=== PATIENT | female | born 1940 | race Caucasian/White ===

== ENCOUNTER 2019-08-02 10:47 | Emergency (ER) | payer MEDICARE ==
[~2019-08-02] VITALS: Ht 160 cm; Wt 61.4 kg
[2019-08-02] MEDS ORDERED: heparin 10,000 units/1 ML INJ IV ONE ×3 (11:15→11:45)
[2019-08-02] MEDS ORDERED: heparin 10,000 units/1 ML INJ IV PRN ×2 (11:15→11:45)
[2019-08-02] MEDS ORDERED: heparin 25,000 UNIT/250ml bag 250 ML IV SCH ×2 (11:15→11:43)
[2019-08-02 11:42] LABS: BASOPHILS # (AUTO) 0.1 X10'3 (0-0.2); BASOPHILS % (AUTO) 0.9 % (0-1); EOSINOPHILS # (AUTO) 0.2 X10'3 (0-0.9); EOSINOPHILS % (AUTO) 2.3 % (0-6); HEMATOCRIT 42.3 % (35.0-45.0); HEMOGLOBIN 14.3 g/dl (12.0-16.0); LYMPHOCYTES # (AUTO) 2.1 X10'3 (1.1-4.8); LYMPHOCYTES % (AUTO) 28.3 % (21-51); MEAN CORPUSCULAR HEMOGLOBIN 32.3 PG (27.0-31.0); MEAN CORPUSCULAR HGB CONC 33.7 g/dL (33.0-36.5); MEAN CORPUSCULAR VOLUME 95.8 FL (78-98); MEAN PLATELET VOLUME 7.6 FL (7.4-10.4); MONOCYTES # (AUTO) 0.8 X10'3 (0-0.9); MONOCYTES % (AUTO) 10.9 % (2-12); NEUTROPHILS # (AUTO) 4.3 X10'3 (1.8-7.7); NEUTROPHILS % (AUTO) 57.6 % (42-75); PLATELET COUNT 272 X10'3 (140-440); RED BLOOD COUNT 4.42 X10'6 (4.20-5.60); RED CELL DISTRIBUTION WIDTH 13.9 % (11.5-14.5); WHITE BLOOD COUNT 7.5 X10'3 (4.5-11.0)
[2019-08-02] MEDS ORDERED: normal saline 1000ml 1,000 ML IV SCH (11:43)
[2019-08-02] MEDS ORDERED: METO25TA6 PO (11:44)
[2019-08-02] MEDS ORDERED: DILT-35 PO (11:44)
[2019-08-02] MEDS ORDERED: acetaminophen 325mg tablet PO PRN ×2 (11:45)
[2019-08-02] MEDS ORDERED: magnesium 4gm in 100ml NS 100 ML IV PRN (11:45)
[2019-08-02] MEDS ORDERED: magnesium Cl slow-release 64mg tablet PO PRN (11:45)
[2019-08-02] MEDS ORDERED: morphine 2 MG/ML inj. syringe IV PRN ×2 (11:45)
[2019-08-02] MEDS ORDERED: mag hydrox/Alum hydrox/simeth 30ml oral suspension PO PRN (11:45)
[2019-08-02] MEDS ORDERED: regadenoson 0.4mg/5ml syringe IV ONE (11:45)
[2019-08-02] MEDS ORDERED: ondansetron/PF 4mg/2ml inj IV PRN (11:45)
[2019-08-02] MEDS ORDERED: potassium CL 10mEq/100ml bag 100 ML IV PRN ×2 (11:45)
[2019-08-02] MEDS ORDERED: magnesium hydroxide 30ml (MOM) UD suspension PO PRN (11:45)
[2019-08-02] MEDS ORDERED: nitroGLYCERIN 0.4mg SUBLingual tab SL PRN ×2 (11:45)
[2019-08-02] MEDS ORDERED: metoprolol tartrate 1mg/ml inj IV PRN (11:45)
[2019-08-02] MEDS ORDERED: magnesium 2GM in 50ml NS 50 ML IV PRN (11:45)
[2019-08-02] MEDS ORDERED: aminophylline 250mg/10ml inj. IV PRN (11:45)
[2019-08-02] MEDS ORDERED: aspirin 325mg tablet PO ONE (11:45)
[2019-08-02] MEDS ORDERED: HYDROcodone/acetaminophen 5mg/325mg tablet PO PRN (11:45)
[2019-08-02] MEDS ORDERED: potassium Cl 20 mEq SR tablet PO PRN ×2 (11:45)
[2019-08-02 11:58] LABS: ALANINE AMINOTRANSFERASE 120 U/L (12-78); ALBUMIN 3.8 G/DL (3.4-5.0); ALBUMIN/GLOBULIN RATIO 1.1 (1.1-1.5); ALKALINE PHOSPHATASE 77 IU/L (46-116); ANION GAP 9 (8-16); ASPARTATE AMINO TRANSFERASE 69 U/L (10-37); BILIRUBIN,TOTAL 0.4 MG/DL (0.1-1.0); BLOOD UREA NITROGEN 14 MG/DL (7-18); BUN/CREATININE RATIO 17.5 (6.6-38.0); CALCIUM 8.9 MG/DL (8.5-10.1); CHLORIDE 107 MMOL/L (99-107); GLUCOSE 97 MG/DL (70-104); SODIUM 144 MMOL/L (135-145); TOTAL CARBON DIOXIDE 28.4 MMOL/L (24-32); TOTAL PROTEIN 7.2 G/DL (6.4-8.2); eGFR 69 ML/MIN
[2019-08-02 12:03] LABS: MAGNESIUM 2.3 MG/DL (1.5-2.4)
[2019-08-02 12:19] LABS: PARTIAL THROMBOPLASTIN TIME 48 SECONDS (22-32)
[2019-08-02 12:30] LABS: HEMOGLOBIN A1C 5.5 % (4.5-6.2)
--- NOTE | 2019-08-02 12:30 | NUR ---
PATIENT STATES THAT SHE REFUSES TO BE ADMITTED INPATIENT AND WOULD LIKE TO LEAVE TO GO TO HER [place] [facility]. PATIENT INFORMED THAT SHE IS HAVING HEART ATTACK AT THE PRESENT TIME AND LEAVING ON HER OWN WOULD BE VERY RISKY TO HER WELL-BEING. STATES THAT HE IS TRYING TO CONTACT THEIR DOG HAIR [facility] FOR FOLLOW-UP CARE. DR. BRAUN AND CHARGE NURSE INFORMED OF PATIENT'S CONCERNS AND DESIRES.
[2019-08-02 12:37] LABS: PHOSPHORUS 3.8 MG/DL (2.3-4.5)
[2019-08-02 15:45] VITALS: BP 148/99
[2019-08-02] MEDS ORDERED: enoxaparin 100mg/ml syringe SUBCUT ONE (16:10)
--- NOTE | 2019-08-02 17:15 | NUR ---
PT ELOPED FROM ED. POC WAS TO TRANSFER PT TO [facility], DR HERRERA WAS THE ACCEPTING MD. WHILE WAITING TO HEAR FROM TRANSFER CENTER TO RECIEVE ROOM ASSIGNMENT PT LEFT THE ED WITHOUT NOTIFYING ANY STAFF. PT HAD HER IV'S REMOVED PRIOR TO ELOPEMENT. I NOTIFIED SELENA PEACE OUR CHARGE NURSE.
--- NOTE | 2019-08-02 17:39 | NUR ---
called transfer center to inform them of pts elopment @1715. @1733 transfer center called to confirm pt had eloped and then to also inform us that pt now has a bed and that if the pt is really elopped that they would cancel the bed and the request. Charge nurse informed
[2019-08-02] MEDS ORDERED: temazepam 15mg capsule PO PRN (21:00)
[2019-08-03] MEDS ORDERED: K and/or MAG REPLACEMENT MC SCH (08:00)
[2019-08-03] MEDS ORDERED: aspirin 325mg tablet PO SCH (08:30)
== END 2019-08-02 17:23 | disposition short-term general hospital (02) ==
LOC: ER 10:48 → MED 3N 14:03 → UNDOADMIN 14:03 → ER 17:23
DX: I21.4 Non-ST elevation (NSTEMI) myocardial infarction (principal); Z88.0 Allergy status to penicillin; Z88.2 Allergy status to sulfonamides; Z79.899 Other long term (current) drug therapy
CPT/HCPCS: 36415; 80053; 83036; 83735; 83880; 84100; 84443; 84484; 85025; 85610; 85730; 93005; 96365; 96366; 96372; 96376; 99285; J1644; J7030; J1650